=== PATIENT | male | born 1970 | race Caucasian/White ===

== ENCOUNTER 2020-03-27 14:51 | Outpatient (REF) | payer MEDICAID, SELFPAY | END 2020-03-27 14:52 | disposition home or self-care (01) | LOC: HO.LAB 14:51 | PROVIDERS: PCP Internal Medicine Geriatric Medicine; Visit Provider Internal Medicine | DX: Z20.828 Contact with and (suspected) exposure to other viral communicable diseases (principal) | CPT/HCPCS: C9803; U0003 ==

== ENCOUNTER → 2020-06-09 13:36 | Outpatient (BNVA) | payer MEDICAID, SELFPAY | PROVIDERS: Visit Provider Internal Medicine ==

== ENCOUNTER 2020-10-04 10:14 | Emergency (ER) | payer MEDICAID, SELFPAY ==
--- NOTE | ~2020-10-04 | XR_ITS ---
EXAMINATION: XR SHOULDER, LEFT CLINICAL INFORMATION: Left shoulder pain COMPARISON: January 24, 2017 TECHNIQUE: Three views of the left shoulder. FINDINGS: There is no evidence of acute fracture or dislocation. No calcific tendinitis. Glenohumeral joint unremarkable. No widening of the acromioclavicular joint is seen. No significant degenerative change of the acromioclavicular joint is noted. XR/XR shoulder LT min 2V IMPRESSION: No significant bony abnormality of the left shoulder identified.
--- NOTE | ~2020-10-04 | XR_ITS ---
EXAMINATION: XR CERVICAL SPINE CLINICAL INFORMATION: Neck pain. COMPARISON: None TECHNIQUE: 4 views of the cervical spine were obtained. FINDINGS: There is straightening of the normal cervical lordosis with normal spinal alignment. Mild to moderate degenerative disc disease is seen from C5-6 to C7-T1 with disc space narrowing and marginal osteophyte formation. There is normal spinal alignment. The vertebral bodies are intact. There is no acute fracture. The odontoid process is intact. The prevertebral soft tissues are unremarkable. XR/XR cervical spine 3V IMPRESSION: 1. Straightening of the normal cervical lordosis may be secondary to positioning and/or muscle spasm. 2. Mild degenerative disc disease in the inferior cervical spine as detailed above.
--- NOTE | ~2020-10-04 | US_ITS ---
EXAMINATION: US VENOUS WITH DOPPLER UPPER EXTREMITY, LEFT CLINICAL INFORMATION: Left shoulder pain. Left arm pain. Clinical concern for deep venous thrombosis COMPARISON: None TECHNIQUE: Ultrasound of the upper extremity is performed using compression sonography and color and pulse Doppler flow with assessment of augmentation of flow. There is also imaging and Doppler assessment of the jugular and subclavian veins. Spectral analysis with color-flow imaging is performed. FINDINGS: Respiratory variation, normal compression, and augmented flow are noted throughout the upper extremity including the axillary, and brachial veins. There is normal flow in the internal jugular and subclavian veins. There is no visible deep or superficial thrombophlebitis. If the patient's symptoms progress, a followup ultrasound in 5 -7 days might be of value to exclude proximal propagation from a nonvisualized distal arm vein. US/US venous duplex UE LT IMPRESSION: No DVT demonstrated in the left upper extremity
--- NOTE | 2020-10-04 11:35 | ECG_ITS ---
Test Reason : CHEST PAIN Blood Pressure : / mmHG Vent. Rate : 075 BPM Atrial Rate : 075 BPM P-R Int : 158 ms QRS Dur : 082 ms QT Int : 384 ms P-R-T Axes : 043 038 033 degrees QTc Int : 428 ms Normal sinus rhythm Normal ECG When compared with ECG of 02-APR-2019 18:02, No significant change was found Referred By: Nicolas Briceño Electronically Signed By:TRAM PHILLIPS
[2020-10-04 11:36] VITALS: BP 124/84; PULSE 84; RESP 16; TEMP 37.2; O2SAT 97; BMI 30.7
--- NOTE | 2020-10-04 11:40 | ED_ITS ---
HPI - General Adult General Chief complaint: Extremity Injury, Upper Stated complaint: shoulder pain Time Seen by Provider: 10/04/20 11:32 Source: patient Mode of arrival: ambulatory Limitations: no limitations History of Present Illness HPI narrative: Patient presents to ED for left shoulder pain for 2 days. Patie nt states left shoulder pain is worse on movement. Patient also states left shoulder pain radiating to lateral side of neck. Patient denies any shoulder pain radiating down to her hand or chest. Patient states no chest pain or shortness of breath. Patient denies any recent trauma, fever or chills. Denies any swelling of left upper extremity. Related Data Previous Rx's Medication Instructions Recorded cyclobenzaprine 10 mg PO TID PRN #18 tab 10/04/20 naproxen 500 mg PO BID PRN #20 tab 10/04/20 Allergies Allergy/AdvReac Type Severity Reaction Status Date / Time shellfish derived Allergy Severe ITCHY Unverified 01/30/20 17:35 [SHELLFISH DERIVED] THROAT/SWELLING seafood Allergy Unknown Uncoded 03/18/19 00:00 Review of Systems Review of Systems: Yes all other systems are reviewed and are negative Constitutional: Constitutional: Reports as per HPI and Reports no additional constitutional complaints Eyes: Eyes: Reports as per HPI and Reports no additional eye complaints ENT: Reports system reviewed and no additional complaints, except as documented and Reports as per HPI Cardiovascular: Cardiovascular: Reports as per HPI and Reports no additional cardiovascular complaints Respiratory: Respiratory: Reports as per HPI and Reports no additional respiratory complaints Gastrointestinal: Gastrointestinal: Reports as per HPI and Reports no additional gastrointestinal complaints Genitourinary: Genitourinary: Reports no additional male genitourinary complaints and Reports as per HPI Musculoskeletal: Musculoskeletal: Reports no additional musculoskeletal complaints, Reports as per HPI and Reports arthralgias (Left shoulder pain) Neurologic: Reports system reviewed and no additional complaints, except as documented and Reports as per HPI Psychiatric: Psychiatric: Reports no additional psychiatric complaints and Reports as per HPI [facility] Past Medical History Medical History (Updated 10/04/20 @ 16:08 by SINCERE Kraft) Hepatitis B Surgical History (Updated 10/04/20 @ 11:43 by Kenyatta Schultz) History of shoulder surgery Social History Social History Advance Directives: Yes Advance Directives Information Provided: Yes Advance Directives on File: No Physical Exam Vital Signs: Vital Signs: Last Vital Signs Temp 98.0 F 10/04/20 13:39 Pulse 70 10/04/20 13:39 Resp 16 10/04/20 13:39 BP 116/75 10/04/20 13:39 Pulse Ox 97 10/04/20 13:39 Body Mass Index 30.7 Const: General: cooperative, healthy appearing, comfortable, no acute distress, well developed, alert, awake and Physically active Orientation/consciousness: patient oriented x3 HENMT: Head: Yes normal to inspection, Yes No palpable skull fracture present, Yes normocephalic and Yes atraumatic Eyes: General: appearance normal, both eyes and all related structures Neck: Neck: Yes normal visual inspection, Yes full ROM, Yes no lymphadenopathy, Yes no meningeal signs, Yes trachea midline, Yes supple and No tender Chest: Chest palpation & inspection: normal inspection of the chest and normal palpation of entire chest wall Resp: Effort & Inspection: normal respiratory effort and able to speak in complete sentences Auscultation: clear to auscultation bilaterally Cardio: Jugular venous distension: no JVD Heart sounds: S1 normal heart sound present and S2 normal heart sound present GI: Inspection: Yes normal to inspection and No abdominal wall ecchymosis Palpation (GI): Soft to palpation, not firm, nontender, no guarding and not rigid : General: No CVA tenderness Back/Spine/Pelvis: Back: no CVA tenderness, No CVA tenderness and No back tenderness Skin: General skin exam: no rashes or lesions noted and elasticity normal Neuro: General: patient oriented x3, no meningeal signs and CN's II-XI intact bilaterally Cranial nerves: Yes CN's II-XII intact bilaterally Extrem: Other: Left lower extremity; POSITIVE FOR PINPOINT TENDERNESS AT ACROMION JOINT/JUNCTION. PAIN OF RANGE OF MOTION OF THE UPPER EXTREMITY. NEGATIVE FOR SWELLING, REDNESS, PAIN OR EDEMA, COOLNESS, HARDNESS, OR BLUISH/BLACK FINGERS. MOTOR/NEURO/VASCULAR EXAM IS INTACT. General: Yes normal to inspection and Yes full ROM Psych: Appearance: grossly normal, well kempt and not disheveled Course Course Course Narrative: SHOULDER PAIN MOST LIKELY DUE TO ARTHRITIC PAIN. DUE TO HISTORY OF DIABETES PATIENT EKG 1 TROPONIN TO MAKE SURE SHE DID HAVE AN MD Reevaluation(s) Reevaluation #1: EKg negative STEMI. Troponin negative after having shoulder pain for 2 days. Labs are baseline. The x-ray negative for any arthritis or fracture. Cervical Spine xray shows arthritic changes. Patient still have tenderness on palpation of left shoulder was sent for ultrasound to rule out blood clot. Reevaluation #2: Left upper extremity ultrasound negative for DVT. Diagnosis is shoulder sprain. Shoulder pain improved after receiving Toradol. Medical Decision Making MDM Narrative Medical decision making narrative: Shoulder sprain, cervical arthritis Lab Data Result diagrams: 10/04/20 12:40 10/04/20 12:35 Labs: Lab Results 10/04/20 10/04/20 10/04/20 Range/Units 12:35 12:40 12:40 WBC 8.5 (4.8-10.8) X10*3/uL RBC 4.78 (4.60-5.80) X10*6/uL Hgb 14.0 (14.0-18.0) g/dl Hct 42.1 (42-52) % MCV 88.1 (80-98) fL MCH 29.3 (27.0-33.0) pg MCHC 33.3 (31.0-36.0) g/dl RDW 13.2 (11.0-16.0) % Plt Count 226 (160-400) X10*3/uL MPV 9.9 (9.4-12.4) fL Immature Gran % (Auto) 0.2 (0.0-0.4) % Neut % (Auto) 58.6 (45-73) % Lymph % (Auto) 28.4 (20-40) % [place] % (Auto) 9.1 (2-11) % Eos % (Auto) 3.3 (0-4) % Baso % (Auto) 0.4 (0-2) % Lymph # (Auto) 2.4 (1.2-4.9) X10*3/uL [place] # (Auto) 0.8 (0.1-1.2) X10*3/uL Eos # (Auto) 0.3 (0.0-0.4) X10*3/uL Baso # (Auto) 0.0 (0.0-0.2) X10*3/uL Abs Immat Gran (auto) 0.02 (0.00-0.03) X10*3/uL Absolute Neuts (auto) 5.0 (2.0-8.3) X10*3/uL Absolute Nucleated RBC 0.000 (0.0-0.012) X10*3/uL Nucleated RBC % (auto) 0.0 (0.0-0.2) /100WBC PT 12.1 (10.8-13.0) SEC INR 1.0 (0.9-1.1) APTT 33.3 (24.1-38.0) SEC Sodium 137 (135-145) mmol/L Potassium 4.2 (3.3-5.1) mmol/L Chloride 103 (96-108) mmol/L Carbon Dioxide 27 (22-29) mmol/L Anion Gap 11 L (12-20) BUN 13 (9-16) mg/dL Creatinine 0.90 (0.5-1.4) mg/dL Estim Creat Clear Calc 101.1 Estimated GFR > 60 Random Glucose 262 H (60-115) mg/dL Calcium 9.0 (8.4-10.2) mg/dL Total Bilirubin 0.3 (0.0-1.0) mg/dL AST 18 (5-37) U/L ALT 27 (0-40) U/L Alkaline Phosphatase 69 (39-117) U/L Troponin I High Sens (<3.5-35.0) ng/L Total Protein 6.8 (6.5-8.0) g/dL Albumin 4.0 (3.5-5.0) g/dL 10/04/20 Range/Units 12:40 WBC (4.8-10.8) X10*3/uL RBC (4.60-5.80) X10*6/uL Hgb (14.0-18.0) g/dl Hct (42-52) % MCV (80-98) fL MCH (27.0-33.0) pg MCHC (31.0-36.0) g/dl RDW (11.0-16.0) % Plt Count (160-400) X10*3/uL MPV (9.4-12.4) fL Immature Gran % (Auto) (0.0-0.4) % Neut % (Auto) (45-73) % Lymph % (Auto) (20-40) % [place] % (Auto) (2-11) % Eos % (Auto) (0-4) % Baso % (Auto) (0-2) % Lymph # (Auto) (1.2-4.9) X10*3/uL [place] # (Auto) (0.1-1.2) X10*3/uL Eos # (Auto) (0.0-0.4) X10*3/uL Baso # (Auto) (0.0-0.2) X10*3/uL Abs Immat Gran (auto) (0.00-0.03) X10*3/uL Absolute Neuts (auto) (2.0-8.3) X10*3/uL Absolute Nucleated RBC (0.0-0.012) X10*3/uL Nucleated RBC % (auto) (0.0-0.2) /100WBC PT (10.8-13.0) SEC INR (0.9-1.1) APTT (24.1-38.0) SEC Sodium (135-145) mmol/L Potassium (3.3-5.1) mmol/L Chloride (96-108) mmol/L Carbon Dioxide (22-29) mmol/L Anion Gap (12-20) BUN (9-16) mg/dL Creatinine (0.5-1.4) mg/dL Estim Creat Clear Calc Estimated GFR Random Glucose (60-115) mg/dL Calcium (8.4-10.2) mg/dL Total Bilirubin (0.0-1.0) mg/dL AST (5-37) U/L ALT (0-40) U/L Alkaline Phosphatase (39-117) U/L Troponin I High Sens < 3.5 (<3.5-35.0) ng/L Total Protein (6.5-8.0) g/dL Albumin (3.5-5.0) g/dL ECG Data Interpretation: Normal sinus rhythm. Normal EKG. Nuclear rate 87. Parents of 148. QRS duration 88. QTC 481. negative stEMI Discharge Plan Discharge Clinical Impression: Shoulder sprain Patient Disposition: Home, Self-Care Instructions: Shoulder Sprain (ED), Cervical Radiculopathy (ED) Additional Instructions: Regrese al servicio de urgencias de inmediato si tiene dolor de pecho, dificultad para respirar, hinchaz?n de la extremidad superior, enrojecimiento, calor, decoloraci?n azulada de las yemas de los dedos, par?lisis de las extremidades o cualquier otro s?ntoma que le preocupe. Prescriptions: New naproxen 500 mg tablet 500 mg PO BID PRN (Reason: pain) Qty: 20 RF: 0 cyclobenzaprine 10 mg tablet 10 mg PO TID PRN (Reason: pain) Qty: 18 RF: 0 Referrals: Eloy Meek MD [Primary Care Provider] - 2 days (Shoulder sprain. X-ray negative for fracture. EKG normal. Troponin negative. Left upper extremity ultrasound negative for DVT) Discharge Date/Time: 10/04/20 16:50 Print Language: Citizen Of [place]
[2020-10-04 12:48] LABS: MANUAL DIFF FLAG NO
[2020-10-04 12:52] LABS: Basophils Percent Auto 0.4 % (0-2); Eosinophils Absolute Auto 0.3 X10*3/uL (0.0-0.4); Eosinophils Percent Auto 3.3 % (0-4); Hematocrit 42.1 % (42-52); Imm Gran Abs Auto 0.02 X10*3/uL (0.00-0.03); Imm Gran Pct Auto 0.2 % (0.0-0.4); Lymphocytes Absolute Auto 2.4 X10*3/uL (1.2-4.9); Lymphocytes Percent Auto 28.4 % (20-40); Mean Corpuscular HGB Conc 33.3 g/dl (31.0-36.0); Mean Corpuscular Hemoglobin 29.3 pg (27.0-33.0); Mean Corpuscular Volume 88.1 fL (80-98); Mean Platelet Volume 9.9 fL (9.4-12.4); Monocytes Absolute Auto 0.8 X10*3/uL (0.1-1.2); Monocytes Percent Auto 9.1 % (2-11); Neutrophils Percent Auto 58.6 % (45-73); Platelet Count 226 X10*3/uL (160-400); Red Blood Count 4.78 X10*6/uL (4.60-5.80); Red Cell Distribution Width 13.2 % (11.0-16.0); White Blood Count 8.5 X10*3/uL (4.8-10.8)
[2020-10-04 13:00] LABS: Prothrombin Time 12.1 SEC (10.8-13.0)
[2020-10-04 13:02] LABS: Partial Thromboplastin Time 33.3 SEC (24.1-38.0)
[2020-10-04 13:12] LABS: Alanine Aminotransferase 27 U/L (0-40); Alkaline Phosphatase 69 U/L (39-117); Anion Gap 11 (12-20); Aspartate Amino Transferase 18 U/L (5-37); Bilirubin Total 0.3 mg/dL (0.0-1.0); Blood Urea Nitrogen 13 mg/dL (9-16); Carbon Dioxide 27 mmol/L (22-29); Chloride 103 mmol/L (96-108); Creatinine Clr Calc Pharmacy 101.1; Estimated Glomerular Filt Rate > 60; Glucose Random 262 mg/dL (60-115); Potassium 4.2 mmol/L (3.3-5.1); Sodium 137 mmol/L (135-145); Total Protein 6.8 g/dL (6.5-8.0)
[2020-10-04 13:17] LABS: Troponin-I High Sensitivity < 3.5 ng/L (<3.5-35.0)
[2020-10-04] MEDS: Ketorolac Tromethamine 30 MG/ML VIAL IVPUSH (13:36)
[2020-10-04 13:39] VITALS: BP 116/75; PULSE 70; RESP 16; TEMP 36.7; O2SAT 97
== END 2020-10-04 16:50 | disposition home or self-care (01) ==
PROVIDERS: Physician Assistant; Emergency Provider Emergency Medicine; PCP Internal Medicine Geriatric Medicine
DX: M25.512 Pain in left shoulder (principal); R60.0 Localized edema; Z79.899 Other long term (current) drug therapy
CPT/HCPCS: 36415; 72040; 73030; 80053; 84484; 85025; 85610; 85730; 93005; 93971; 96372; 99284; J1885

== ENCOUNTER 2021-08-24 07:24 | Emergency (ER) | payer MEDICAID, SELFPAY ==
[2021-08-24 07:35] VITALS: BP 145/96; PULSE 80; RESP 16; TEMP 36.7; O2SAT 99; BMI 29.9
--- NOTE | 2021-08-24 07:55 | ED.WOUNDLAC ---
HPI - Wound/Laceration General Chief Complaint: Wound/Laceration Stated Complaint: finger lac Time Seen by Provider: 08/24/21 07:49 Source: patient Mode of arrival: ambulatory Limitations: no limitations History of Present Illness HPI narrative: 50 y/o male presenting with right index finger with a razor blade while cutting fruit at work earlier today. He reports cutting the tip of the finger off but on a slant. It did not involve the nail. He reports pain and bleeding on arrival. He rinsed it out and tried to apply pressure but the bleeding wouldnt stop. He is unsure when his last tetanus shot was. He is able to fully bend, extend the finger and denies numbness, weakness or tingling. Onset (ago): minute(s) Extremity Location: right: hand (index finger) Place: work Patient tetanus UTD: No Context: accidental Associated symptoms: none Treatments prior to arrival: bandage Related Data Previous Rx's Medication Instructions Recorded cyclobenzaprine 10 mg tablet 10 mg PO TID PRN #18 tab 10/04/20 naproxen 500 mg tablet 500 mg PO BID PRN #20 tab 10/04/20 Allergies Allergy/AdvReac Type Severity Reaction Status Date / Time shellfish derived Allergy Severe ITCHY Unverified 01/30/20 17:35 [SHELLFISH DERIVED] THROAT/SWELLING seafood Allergy Unknown Uncoded 03/18/19 00:00 Review of Systems Review of Systems: Constitutional: No Fever, No Chills Cardiovascular: No Chest Pain, No SOB Gastrointestinal: No Nausea, No Vomiting Musculoskeletal: No joint pain, No Myalgias Skin: + Skin Lesions, No rash Neuro: No Weakness, No Numbness Heme/Lymph: No Bruising PMFSH Past Medical History Medical History (Updated 08/24/21 @ 08:24 by SINCERE Boyd) Hepatitis B Surgical History History of shoulder surgery Social History Social History Advance Directives: No Advance Directives Information Provided: Yes Physical Exam Vital Signs: Vital Signs: Last Vital Signs Temp 98.1 F 08/24/21 07:35 Pulse 80 08/24/21 07:35 Resp 16 08/24/21 07:35 BP 145/96 H 08/24/21 07:35 Pulse Ox 99 04/12/22 07:35 BMI result Body Mass Index 29.9 Appearance: Alert. Oriented X3. No acute distress. HEENT: normal inspection CVS: Normal heart rate and rhythm. Pulses normal. Respiratory: No respiratory distress. Skin: Skin warm and dry. Normal skin color. Normal skin turgor. No rashes. Extremities: right index finger with an avulsion lateral to the nail, approx 1 cm with active bleeding, clean cut without flap. cap refill <3 sec, normal ROM of the digit. Neuro: Oriented X 3. No motor deficit. No sensory deficit. Course Course Course Narrative: 50 y/o male presenting with right index finger avulsion. Surgicel applied to stop the bleeding with good effect. DSD applied. Wound care discussed and Tdap given. Stable for d/c home. Work note provided and encouraged to f/u with PCP. Critical Care Time Critical Care Time Critical Care Time: No Discharge Plan Discharge Clinical Impression: Avulsion of skin Patient Disposition: Home, Self-Care Instructions: Skin Avulsion (ED) Additional Instructions: Keep the shiney gauze on your finger for the next 2 days. Keep covered and dry, do not get wet for the next 2 days. After 2 days you can use water and rinse it off. If bleeding occurs, hold pressure for 15 minutes. Keep elevated and apply ice to the area to help with pressure, throbbing and pain. Take Motrin and/or Tylenol for pain. If you develop new or worsening symptoms call 911 or come back to the ER for further evaluation. Prescriptions: No Action naproxen 500 mg tablet 500 mg PO BID PRN (Reason: pain) Qty: 20 0RF cyclobenzaprine 10 mg tablet 10 mg PO TID PRN (Reason: pain) Qty: 18 0RF Rx Instructions: El efecto secundario es la somnolencia. No lo tome en el trabajo o mientras conduce Referrals: Name,MD Eloy [Primary Care Provider] - Stand Alone Forms: Work/School Release
[2021-08-24] MEDS: Diphth,Pertus(ACell),Tet Adult 0.5 ML SYRINGE IM (08:35)
== END 2021-08-24 09:10 | disposition home or self-care (01) ==
PROVIDERS: Emergency Provider Emergency Medicine; PCP Internal Medicine Geriatric Medicine
DX: S61.210A Laceration without foreign body of right index finger without damage to nail, initial encounter (principal); W27.8XXA Contact with other nonpowered hand tool, initial encounter; Y93.G1 Activity, food preparation and clean up; Y92.511 Restaurant or cafe as the place of occurrence of the external cause; Y99.0 Civilian activity done for income or pay
CPT/HCPCS: 12001; 90471; 90715; 99283; 99284

== ENCOUNTER 2021-11-18 10:51 | Outpatient (REF) | payer MEDICAID, SELFPAY ==
--- NOTE | ~2021-11-18 | XR_ITS ---
EXAMINATION: BILATERAL SHOULDER. CLINICAL INFORMATION: Pain. COMPARISON: None TECHNIQUE: 4 views each shoulder FINDINGS: Left shoulder: There is no visible acute fracture, dislocation or subluxation seen. No bony erosive changes. No acute fracture or dislocation. The soft tissues are normal. Right shoulder: There are 2 daya along the right humeral head from previous intervention. There is maintained normal glenohumeral and AC joint space. No visible acute fracture, dislocation or subluxation seen. No loose bodies. The soft tissues are normal. XR/XR shoulder LT min 2V IMPRESSION: Unremarkable bilateral shoulder exam.
--- NOTE | ~2021-11-18 | XR_ITS ---
EXAMINATION: BILATERAL SHOULDER. CLINICAL INFORMATION: Pain. COMPARISON: None TECHNIQUE: 4 views each shoulder FINDINGS: Left shoulder: There is no visible acute fracture, dislocation or subluxation seen. No bony erosive changes. No acute fracture or dislocation. The soft tissues are normal. Right shoulder: There are 2 daya along the right humeral head from previous intervention. There is maintained normal glenohumeral and AC joint space. No visible acute fracture, dislocation or subluxation seen. No loose bodies. The soft tissues are normal. XR/XR shoulder RT min 2V IMPRESSION: Unremarkable bilateral shoulder exam.
== END 2021-11-18 10:52 | disposition home or self-care (01) ==
LOC: HO.XRAY 10:51
PROVIDERS: Absent Provider Internal Medicine Geriatric Medicine; PCP Internal Medicine Geriatric Medicine; Visit Provider Registered Nurse Community Health
DX: M25.511 Pain in right shoulder (principal); M25.512 Pain in left shoulder
CPT/HCPCS: 73030

== ENCOUNTER 2022-07-13 11:36 | Outpatient (REF) | payer MEDICAID, SELFPAY ==
--- NOTE | ~2022-07-13 | XR_ITS ---
EXAMINATION: XR KNEE, LEFT XR SHOULDER, RIGHT CLINICAL INFORMATION: Left knee pain and right shoulder pain. COMPARISON: Right shoulder 11/18/2021. TECHNIQUE: Left knee 4 views. Right shoulder 4 views. FINDINGS: LEFT KNEE: The tricompartment joint space is maintained normal. No bony erosive changes. No loose bodies, acute fracture or dislocation. No abnormal joint effusion. There is anterior superior patellar enthesophyte. The soft tissues are normal. RIGHT SHOULDER: There is no visible acute fracture, dislocation or subluxation. The glenohumeral joint and AC joint space is maintained normal. No visible acute fracture, dislocation or lytic process seen. There are 2 daya along the right proximal humerus. They are unchanged from 11/18/2021 exam. The soft tissues are normal. XR/XR knee LT 4V IMPRESSION: 1. Unremarkable left knee exam. 2. Unremarkable right shoulder exam. There are 2 daya along the proximal right humerus unchanged to last right shoulder exam. There is no visible acute fracture or dislocation.
--- NOTE | ~2022-07-13 | XR_ITS ---
EXAMINATION: XR KNEE, LEFT XR SHOULDER, RIGHT CLINICAL INFORMATION: Left knee pain and right shoulder pain. COMPARISON: Right shoulder 11/18/2021. TECHNIQUE: Left knee 4 views. Right shoulder 4 views. FINDINGS: LEFT KNEE: The tricompartment joint space is maintained normal. No bony erosive changes. No loose bodies, acute fracture or dislocation. No abnormal joint effusion. There is anterior superior patellar enthesophyte. The soft tissues are normal. RIGHT SHOULDER: There is no visible acute fracture, dislocation or subluxation. The glenohumeral joint and AC joint space is maintained normal. No visible acute fracture, dislocation or lytic process seen. There are 2 daya along the right proximal humerus. They are unchanged from 11/18/2021 exam. The soft tissues are normal. XR/XR shoulder RT min 2V IMPRESSION: 1. Unremarkable left knee exam. 2. Unremarkable right shoulder exam. There are 2 daya along the proximal right humerus unchanged to last right shoulder exam. There is no visible acute fracture or dislocation.
--- NOTE | ~2022-07-13 | XR_ITS ---
EXAMINATION: XR KNEE, RIGHT CLINICAL INFORMATION: Pain. COMPARISON: None TECHNIQUE: AP, lateral, tunnel, and sunrise views of the right knee. FINDINGS: Bony alignment and mineralization are normal. The lateral, medial and patellofemoral joint space compartments are well-maintained. There is a tiny peripheral osteophyte at the upper articular surface of the patella. A small enthesophyte is seen at the upper pole of the patella towards the quadriceps tendon insertion. No fracture or dislocation is seen. There is a small right knee joint effusion. No foreign body is seen. XR/XR knee RT 4V IMPRESSION: 1. No right knee fracture or dislocation is seen. 2. There is a small right knee joint effusion. 3. There is minimal osteoarthritic change of the right patellofemoral compartment.
== END 2022-07-13 11:37 | disposition home or self-care (01) ==
LOC: HO.XRAY 11:36
PROVIDERS: PCP Internal Medicine Geriatric Medicine; Visit Provider Internal Medicine Geriatric Medicine
DX: M25.561 Pain in right knee (principal); M25.562 Pain in left knee; M25.511 Pain in right shoulder; G89.29 Other chronic pain
CPT/HCPCS: 73030; 73564

== ENCOUNTER → 2022-08-18 08:42 | Outpatient (BNVA) | payer MEDICAID, SELFPAY | PROVIDERS: PCP Internal Medicine Geriatric Medicine; Visit Provider Physician Assistant | DX: M75.81 Other shoulder lesions, right shoulder (principal); M75.21 Bicipital tendinitis, right shoulder | CPT/HCPCS: 99202 ==

== ENCOUNTER 2022-11-08 11:00 | Outpatient (RCR) | payer MEDICAID, SELFPAY ==
--- NOTE | 2022-10-11 14:43 | MHC.PT.EP ---
[facility] [place] Office [place] Office [place] Office [address] [phone] F: [phone] F: [phone] F: [phone] F: [phone] Physical Therapy Plan of Care Date of Evaluation: Date of Surgery: Diagnosis: RIGHT SHOULDER PAIN (KP) Assessment: KAITLIN IS A PLEASANT 51 YO GENTLEMAN WHO PRESENTS WITH EXACCERBATION OF SHOULDER PAIN. HE REPORTS HAVING AN INJURY SEVERAL YEARS AGO WHICH EVENTUALLY REQUIRED A ROTATOR CUFF REPAIR. HE REPORTS PAIN OF SEVERAL MONTHS DURATION, NO NEW TOYA. PAIN LEVELS VARY AND INCREASE WITH ACTIVITY. UPON EXAM, IMPAIRMENTS INCLUDE DECREASED SHOULDER ROM, DECREASED STRENGTH, ALTERED POSTURE, DECREASED SOFT TISSUE MOBILITY AND INCREASED PAIN. FUNCTIONAL LIMITATIONS INCLUDE DECREASED ABILITY TO PERFORM REACHING, LIFTING, PUSHING AND PULLING. HE REPORTS DECREASED TOLERANCE TO SLEEPING AND TO DRIVING. Frequency and Duration: The patient will be seen 2 X WEEK FOR 4 WEEKS Short Term Goals: INITIATE HEP AND PROMOTE SELF MANAGEMENT OF SYMPTOMS Detention Goals: FULL SHOULDER ROM WITH PAIN NO GREATER THAN 2/10 FULL SHOULDER STRENGTH, EQUAL NIKITA TO PLACE OBJECT, AT MINIMUM 5#, ON SHOULDER HEIGHT SHELF INDEPENDENT HEP Treatment Plan: Modalities to reduce pain, spasms and effusion. Manual therapy to restore motion and function. Therapeutic exercise to improve strength and flexibility. Neuromuscular re-education for posture and balance. Therapeutic activities to return to functional activities of daily living. Electronically signed by: NISHANT CARDOZA PT DPT Please sign and return to therapist. Thank you for your referral.
--- NOTE | 2022-11-28 08:46 | MHC.PT.DC ---
[facility] [place] Office [place] Office [place] Office [address] Ariane Cano [address] [phone] F: [phone] F: [phone] F: [phone] F: [phone] Physical Therapy Discharge Report Diagnosis: RIGHT SHOULDER PAIN (KP) Date of Surgery: Date of Evaluation: 10/11/22 Date of Discharge: 11/16/22 Treatments to Date: 4 Cancellations to Date: 1 No Shows to Date: 3 Discharge Status: Visit Non-compliance Discharge Summary: Pt NO SHOWED/CANCELLED X 4. DCed FOR NON-COMPLIANCE Electronically signed by: NISHANT CARDOZA PT DPT Please sign and return to therapist. Thank you for your referral.
== END 2022-11-28 08:46 | disposition home or self-care (01) ==
LOC: HO.PT 11:00
PROVIDERS: PCP Internal Medicine Geriatric Medicine; Visit Provider Physician Assistant
DX: M75.81 Other shoulder lesions, right shoulder (principal); M75.21 Bicipital tendinitis, right shoulder
CPT/HCPCS: 97033; 97110; 97161

== ENCOUNTER 2022-12-25 22:57 | Emergency (ER) | payer MEDICAID, SELFPAY ==
--- NOTE | ~2022-12-25 | XR_ITS ---
EXAMINATION: XR CHEST CLINICAL INFORMATION: Shortness of breath. COMPARISON: 04/02/2019. TECHNIQUE: 2 views of the chest were obtained. FINDINGS: The cardiomediastinal silhouette is normal. There is no focal lung consolidation or pleural effusion. The bony structures and soft tissues are unremarkable. XR/XR chest 2V IMPRESSION: No active cardiopulmonary disease.
[2022-12-25 23:50] VITALS: BP 136/92; PULSE 71; RESP 18; TEMP 36.8; O2SAT 98; BMI 35.7
[2022-12-26 00:39] LABS: Influenza A PCR NEGATIVE (Negative); Influenza B PCR NEGATIVE (Negative); Resp Syncy Virus RNA Qual PCR NEGATIVE (Negative); SARS COV2 PCR INHOUSE NEGATIVE (Negative)
[2022-12-26 06:31] VITALS: BP 142/86; PULSE 87; RESP 18; O2SAT 100
[2022-12-26 06:32] VITALS: O2SAT 100
[2022-12-26 06:34] VITALS: TEMP 36.5
--- NOTE | 2022-12-26 07:11 | ED_ITS ---
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 Patient reports that he developed the symptoms 2 weeks ago and feels as though his symptoms have not improved despite taking Tylenol and ibuprofen at home. Patient endorses subjective fevers, chills. Initially his cough is productive with yellow colored sputum, now is a dry cough. He denies any chest pain, shortness of breath, abdominal pain, nausea, vomiting, diarrhea, or urinary symptoms. Denies any other complaints or concerns at this time. MD complaint: Cough Onset (ago): week(s) Radiation: non-radiation Relieving factors: none Exacerbating factors: none Associated symptoms: denies other symptoms Treatments prior to arrival: none Related Data Home Medications Medication Instructions Recorded Confirmed amlodipine 2.5 mg tablet 5 mg PO QAM 08/18/22 08/18/22 atorvastatin 20 mg tablet 20 mg PO DAILY 08/18/22 08/18/22 duloxetine 60 mg capsule,delayed 60 mg PO DAILY 08/18/22 08/18/22 release empagliflozin 10 mg tablet 10 mg PO QAM 08/18/22 08/18/22 (Jardiance) glipizide 5 mg tablet 5 mg PO TID 08/18/22 08/18/22 lisinopril 10 mg tablet 10 mg PO DAILY 08/18/22 08/18/22 metformin 1,000 mg tablet 1,000 mg PO 08/18/22 08/18/22 mirtazapine 15 mg tablet 15 mg PO BEDTIME 08/18/22 08/18/22 omeprazole 20 mg capsule,delayed 20 mg PO DAILY 08/18/22 08/18/22 release Previous Rx's Medication Instructions Recorded cyclobenzaprine 10 mg tablet 10 mg PO TID PRN pain #18 tabs 10/04/20 naproxen 500 mg tablet 500 mg PO BID PRN pain #20 tabs 10/04/20 azithromycin 250 mg tablet See Rx Instructions PO .COMPLEX #6 12/26/22 tabs benzonatate 200 mg capsule 200 mg PO TID PRN cough #14 caps 12/26/22 Allergies Allergy/AdvReac Type Severity Reaction Status Date / Time shellfish derived Allergy Severe ITCHY Unverified 08/18/22 08:49 [SHELLFISH DERIVED] THROAT/SWELLING seafood Allergy Unknown Unknown Uncoded 08/18/22 08:49 Review of Systems Review of Systems: Yes all other systems are reviewed and are negative Constitutional: Constitutional: Reports as per [facility] Past Medical History Medical History Anxiety and depression Diabetes Hepatitis B High cholesterol Hypertension Surgical History History of colon surgery History of shoulder surgery Social History Social History Alcohol intake: never Tobacco use type: Smokeless Tobacco Smoked in Last 30 Days: No Use of substances other than those prescribed or required for medical reasons: No Advance Directives: No Advance Directives Information Provided: No Current occupational status: employed Current occupation: [employer], left handed Physical Exam ED Vital Signs: Vital Signs - 24 hr 12/25/22 23:50 12/26/22 06:31 12/26/22 06:32 Temperature 98.2 F Pulse Rate 71 87 Respiratory Rate 18 18 Blood Pressure 136/92 H 142/86 H Pulse Oximetry 98 100 100 Oxygen Delivery Method Room Air Room Air Room Air 12/26/22 06:34 12/26/22 07:31 Temperature 97.7 F 97.7 F Pulse Rate 70 Respiratory Rate 16 Blood Pressure 131/90 H Pulse Oximetry 98 Oxygen Delivery Method Room Air BMI result Body Mass Index 35.7 Const General: cooperative, comfortable and no acute distress Orientation/consciousness: patient oriented x3 Limitations: no limitations HENMT Other: Oropharynx is mildly erythematous, no tonsillar hypertrophy or exudate. Uvula is midline. Pharynx is widely patent Head: Yes normal to inspection, Yes normocephalic and Yes atraumatic Ears: hearing grossly normal bilaterally General nose exam: Normal external nose present Face and sinus: Yes normal facial exam Mouth: Normal oral and palatal mucosa present, oropharynx normal and moist mucous membranes Throat: Yes posterior oropharynx normal Eyes General: appearance normal, both eyes and all related structures Eyelids: Yes eyelids normal Conjunctivae: conjunctivae normal Sclerae: sclerae normal Pupils: Equal, round and reactive pupils present EOM: EOMs intact bilaterally Neck Neck: Yes normal visual inspection, Yes full ROM and Yes no lymphadenopathy Lymphatic: no lymphadenopathy noted Chest Chest palpation & inspection: normal inspection of the chest Resp Effort & Inspection: normal respiratory effort and able to speak in complete sentences Auscultation: clear to auscultation bilaterally, no crackles, no rales, no rhonchi and no wheezes Cardio Rate: regular rate Rhythm: regular rhythm Heart sounds: S1 normal heart sound present and S2 normal heart sound present GI Inspection: Yes normal to inspection Skin General skin exam: no rashes or lesions noted Trauma: no lacerations or abrasions Wounds: no wounds Neuro General: patient oriented x3 and moves all extremities Cranial nerves: Yes Equal, round and reactive pupils present Extrem General: Yes normal to inspection Right upper extremity: normal to inspection Left upper extremity: normal to inspection Right lower extremity: normal to inspection Left lower extremity: normal to inspection Medical Decision Making Medical Decision Making [facility] Narrative: 52-year-old male, with a past medical history of diabetes, hyperlipidemia, hypertension, anxiety and depression, presenting to the emergency department for evaluation of cough, body aches, chills, dizziness, headaches. On arrival, mildly hypertensive at 136/92. On examination, lungs are clear to auscultation bilaterally, oropharynx is mildly erythematous. Differential diagnoses including pneumonia, upper respiratory infection, sinusitis, influenza. Presentation not consistent with chronic causes cough including medication side effect, CHF. Viral swabs obtained and were negative today. Chest x-ray revealing no pneumonia or consolidation. Given duration of symptoms, will treat with antibiotics and Tessalon. Patient educated to return if any new or wors ening symptoms occur. Patient understands and agrees with plan. Patient stable for discharge. Differential Diagnosis Differential Diagnoses: The differential diagnosis associated with the presentation includes Upper respiratory infection, pneumonia, COVID, flu Lab Data [facility] Lab Attestation statement: I reviewed the patient's lab results. Negative viral panel Labs: Lab Results 12/25/22 Range/Units 23:55 Influenza Type A (PCR) NEGATIVE (Negative) Influenza Type B (PCR) NEGATIVE (Negative) RSV RNA Qual (PCR) NEGATIVE (Negative) SARS-CoV-2 RNA (RT-PCR) NEGATIVE (Negative) Radiology Impression Discussion of test interpretation with radiology: I have reviewed the radiologist's reading. Radiologist Impression: EXAMINATION: XR CHEST CLINICAL INFORMATION: Shortness of breath. COMPARISON: 04/02/2019. TECHNIQUE: 2 views of the chest were obtained. FINDINGS: The cardiomediastinal silhouette is normal. There is no focal lung consolidation or pleural effusion. The bony structures and soft tissues are unremarkable. XR/XR chest 2V IMPRESSION: No active cardiopulmonary disease. Dictated By: Reynaldo Montalvo Discharge Plan Discharge Clinical Impression: Upper respiratory infection Patient Disposition: Home, Self-Care Instructions: Upper Respiratory Infection (ED) Additional Instructions: Please drink plenty of fluids and get plenty of rest. Continue taking Tylenol and ibuprofen as directed for symptomatic relief. Take prescribed antibiotic and cough medication. Finish the entire course of the antibiotic even if your feeling better. If any new or worsening symptoms occur including but not limited to the worsening cough, shortness of breath, chest pain, please return for re- evaluation. Follow-up with your primary care physician. Kizzy muchos l?quidos y descanse lo suficiente. Contin?e tomando Tylenol e ibuprofeno seg?n las indicaciones para el alivio sintom?ruddy. Clare antibi?ticos recetados y medicamentos para la tos. Termine todo el curso del antibi?ruddy incluso si se siente mejor. Si se presentan s?ntomas nuevos o que empeoran, incluidos, entre otros, empeoramiento de la tos, dificultad para respirar, dolor en el pecho, regrese para naheed nueva evaluaci?n. Seguimiento con bradshaw m?dico de atenci?n primaria. Prescriptions: New azithromycin 250 mg tablet See Rx Instructions .ROUTE .COMPLEX Qty: 6 0RF Rx Instructions: For 250 mg dose pack: take 500 mg today (day 1), then 250 mg for 4 days (days 2-5) benzonatate 200 mg capsule 200 mg PO TID PRN (Reason: cough) Qty: 14 0RF No Action naproxen 500 mg tablet 500 mg PO BID PRN (Reason: pain) Qty: 20 0RF cyclobenzaprine 10 mg tablet 10 mg PO TID PRN (Reason: pain) Qty: 18 0RF Rx Instructions: El efecto secundario es la somnolencia. No lo tome en el trabajo o mientras conduce Jardiance 10 mg tablet 10 mg PO QAM mirtazapine 15 mg tablet 15 mg PO BEDTIME amlodipine 2.5 mg tablet 5 mg PO QAM duloxetine 60 mg capsule,delayed release(DR/EC) 60 mg PO DAILY omeprazole 20 mg capsule,delayed release(DR/EC) 20 mg PO DAILY metformin 1,000 mg tablet 1,000 mg PO lisinopril 10 mg tablet 10 mg PO DAILY atorvastatin 20 mg tablet 20 mg PO DAILY glipizide 5 mg tablet 5 mg PO TID Interventions: ED Discharge Assessment Last Done: 12/26/22 07:45 Discharge Date/Time: 12/26/22 07:45 Print Language: Mexican
[2022-12-26 07:31] VITALS: BP 131/90; PULSE 70; RESP 16; TEMP 36.5; O2SAT 98
== END 2022-12-26 07:45 | disposition home or self-care (01) ==
PROVIDERS: Emergency Provider Emergency Medicine; PCP Internal Medicine Geriatric Medicine
DX: J06.9 Acute upper respiratory infection, unspecified (principal); J02.9 Acute pharyngitis, unspecified; Z20.822 Contact with and (suspected) exposure to COVID-19; Z20.828 Contact with and (suspected) exposure to other viral communicable diseases; E11.9 Type 2 diabetes mellitus without complications; I10 Essential (primary) hypertension; E78.5 Hyperlipidemia, unspecified; F17.200 Nicotine dependence, unspecified, uncomplicated
CPT/HCPCS: 0241U; 71046; 99283; 99284

== ENCOUNTER 2023-06-19 11:34 | Outpatient (REF) | payer MEDICAID, SELFPAY ==
--- NOTE | ~2023-06-19 | XR_ITS ---
EXAMINATION: XR LUMBOSACRAL SPINE CLINICAL INFORMATION: Worsening low back pain COMPARISON: None available. TECHNIQUE: Three views of the lumbosacral spine. FINDINGS: The visualized lumbar vertebrae are intact with normal alignment. Intervertebral disc spaces are normal. Sacrum and coccyx are intact with normal alignment. XR/XR lumbar spine 2-3V IMPRESSION: 1. Normal lumbosacral spine x-ray. 2. No fracture or dislocation of lumbar spine is seen.
== END 2023-06-19 11:35 | disposition home or self-care (01) ==
LOC: HO.HHCX 11:34
PROVIDERS: Visit Provider Internal Medicine Geriatric Medicine
DX: M54.50 Low back pain, unspecified (principal); G89.29 Other chronic pain
CPT/HCPCS: 72100

== ENCOUNTER 2023-06-30 09:15 | Outpatient (REF) | payer MEDICAID, SELFPAY ==
[2023-06-30 11:13] LABS: MANUAL DIFF FLAG NO
[2023-06-30 11:28] LABS: Alanine Aminotransferase 23 U/L (0-40); Albumin Level 4.2 g/dL (3.5-5.0); Alkaline Phosphatase 68 U/L (39-117); Anion Gap 11 (12-20); Aspartate Amino Transferase 16 U/L (5-37); Bilirubin Total 0.4 mg/dL (0.0-1.0); Blood Urea Nitrogen 16 mg/dL (9-16); Calcium 9.2 mg/dL (8.4-10.2); Carbon Dioxide 27 mmol/L (22-29); Chloride 104 mmol/L (96-108); Cholesterol 169 mg/dL (<200); Estimated Glomerular Filt Rate > 60; Glucose Random 172 mg/dL (60-115); HDL Cholesterol 33 mg/dL (>40); LDL Cholesterol Calculated 121 mg/dL (<100); Potassium 4.3 mmol/L (3.3-5.1); Sodium 138 mmol/L (135-145); Total Protein 7.5 g/dL (6.5-8.0); Triglycerides 75 mg/dL (<150)
[2023-06-30 11:53] LABS: Vitamin B12 653 pg/mL (200-900)
[2023-06-30 12:17] LABS: Basophils Absolute Auto 0.1 X10*3/uL (0.0-0.2); Basophils Percent Auto 0.6 % (0-2); Eosinophils Absolute Auto 0.4 X10*3/uL (0.0-0.4); Eosinophils Percent Auto 4.2 % (0-4); Hematocrit 46.3 % (42.0-52.0); Hemoglobin 15.3 g/dl (14.0-18.0); Imm Gran Abs Auto 0.03 X10*3/uL (0.00-0.03); Imm Gran Pct Auto 0.3 % (0.0-0.4); Lymphocytes Absolute Auto 2.9 X10*3/uL (1.2-4.9); Lymphocytes Percent Auto 33.8 % (20-40); Mean Corpuscular Hemoglobin 28.7 pg (27.0-33.0); Mean Corpuscular Volume 86.9 fL (80.0-98.0); Mean Platelet Volume 10.7 fL (9.4-12.4); Monocytes Absolute Auto 0.8 X10*3/uL (0.1-1.2); Neutrophils Absolute Auto 4.5 x10*3/uL (2.0-8.3); Neutrophils Percent Auto 52.1 % (45-73); Platelet Count 257 X10*3/uL (160-400); Red Blood Count 5.33 X10*6/uL (4.60-5.80); Red Cell Distribution Width 12.9 % (11.0-16.0); White Blood Count 8.6 X10*3/uL (4.8-10.8)
[2023-06-30 12:25] LABS: Microalbum/Creatinine Ratio Ur 15.9 ug/mg cr (<30)
== END 2023-06-30 09:16 | disposition home or self-care (01) ==
LOC: HO.HHCL 09:15
PROVIDERS: Visit Provider Internal Medicine Geriatric Medicine
DX: E11.65 Type 2 diabetes mellitus with hyperglycemia (principal); E78.00 Pure hypercholesterolemia, unspecified; I10 Essential (primary) hypertension
CPT/HCPCS: 36415; 80053; 80061; 82043; 82570; 82607; 85025

== ENCOUNTER 2023-10-20 08:33 | Outpatient (REF) | payer MEDICAID, SELFPAY ==
[2023-10-20 11:34] LABS: Alanine Aminotransferase 21 U/L (0-40); Alkaline Phosphatase 61 U/L (39-117); Aspartate Amino Transferase 16 U/L (5-37); Bilirubin Direct < 0.2 mg/dL (0.0-0.5); Bilirubin Total 0.2 mg/dL (0.0-1.0); Cholesterol 168 mg/dL (<200); HDL Cholesterol 38 mg/dL (>40); LDL Cholesterol Calculated 115 mg/dL (<100); Triglycerides 78 mg/dL (<150)
== END 2023-10-20 08:34 | disposition home or self-care (01) ==
LOC: HO.HHCL 08:33
PROVIDERS: Visit Provider Internal Medicine Geriatric Medicine
DX: E11.65 Type 2 diabetes mellitus with hyperglycemia (principal)
CPT/HCPCS: 36415; 80061; 80076

== ENCOUNTER 2023-12-29 11:29 | Outpatient (REF) | payer MEDICAID, SELFPAY ==
[2023-12-29 13:58] LABS: Alanine Aminotransferase 32 U/L (0-40); Albumin Level 4.3 g/dL (3.5-5.0); Alkaline Phosphatase 76 U/L (39-117); Anion Gap 11 (12-20); Aspartate Amino Transferase 23 U/L (5-37); Bilirubin Direct 0.2 mg/dL (0.0-0.5); Bilirubin Total 0.4 mg/dL (0.0-1.0); Blood Urea Nitrogen 10 mg/dL (9-16); Calcium 9.7 mg/dL (8.4-10.2); Carbon Dioxide 26 mmol/L (22-29); Chloride 107 mmol/L (96-108); Cholesterol 106 mg/dL (<200); Estimated Glomerular Filt Rate > 60; Glucose Random 120 mg/dL (60-115); HDL Cholesterol 34 mg/dL (>40); LDL Cholesterol Calculated 64 mg/dL (<100); Potassium 3.9 mmol/L (3.3-5.1); Sodium 140 mmol/L (135-145); Total Protein 7.6 g/dL (6.5-8.0); Triglycerides 44 mg/dL (<150)
== END 2023-12-29 11:30 | disposition home or self-care (01) ==
LOC: HO.HHCL 11:29
PROVIDERS: Visit Provider Internal Medicine Geriatric Medicine
DX: E11.65 Type 2 diabetes mellitus with hyperglycemia (principal); I10 Essential (primary) hypertension
CPT/HCPCS: 36415; 80048; 80061; 80076

== ENCOUNTER 2024-04-16 13:48 | Outpatient (AMB) | payer OTHER, SELFPAY ==
[2024-04-16 13:52] VITALS: BP 120/80; PULSE 70; BMI 29.3
--- NOTE | 2024-04-16 13:52 | MHC.OFFVIS ---
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 Name: [id number] Accompanied by: Self / Same As Patient Allergies shellfish derived [SHELLFISH DERIVED] Allergy (Severe, Unverified 08/18/22 08:49) ITCHY THROAT/SWELLING seafood Allergy (Unknown, Uncoded 08/18/22 08:49) Unknown Medication List - Last Reconciled 04/16/24 by Fritz Drew MD amlodipine 5 mg PO QAM atorvastatin 20 mg PO DAILY azithromycin For 250 mg dose pack: take 500 mg today (day 1), then 250 mg for 4 days (days 2-5) benzonatate 200 mg PO TID PRN cyclobenzaprine 10 mg PO TID PRN duloxetine 60 mg PO DAILY empagliflozin (Jardiance) 10 mg PO QAM empagliflozin-metformin 12.5-1,000 mg ER (Synjardy XR) 2 tabs PO QAM glipizide 5 mg PO TID lisinopril 10 mg PO DAILY mirtazapine 15 mg PO BEDTIME naproxen 500 mg PO BID PRN omeprazole 20 mg PO DAILY HPI Comments Details: Luis is here for consultation regarding chest pains. He does not have any known cardiac issues including coronary disease or myocardial infarction or cardiomyopathy or in fact any other cardiac issues. States that he gets pains in the front of the chest. Somewhat random occurrence. It can happen during rest or exertion. Multiple cardiovascular risk factors including diabetes, hypertension, dyslipidemia. [facility] Medical History (Updated 04/16/24 @ 14:11 by Fritz Drew MD) Anxiety and depression High cholesterol Hypertension Diabetes Hepatitis B Surgical History History of colon surgery History of shoulder surgery Family History (Updated 04/16/24 @ 14:00 by Tiffani Nice CMA) Mother Heart attack Father No problems noted. Social History Alcohol intake: never Tobacco use type: Smokeless Tobacco Current occupational status: employed Current occupation: [employer], left handed Review of Systems Const Denies chills, Denies fatigue, Denies fever(s), Denies frequent falls, Denies weakness, Denies weight gain and Denies weight loss ENT Denies dizziness Card Denies chest pain, Denies leg edema, Denies lightheadedness, Denies palpitations, Denies dyspnea, Denies dyspnea on exertion and Denies orthopnea Resp Denies cough, Denies dyspnea and Denies dyspnea on exertion GI Denies bloating and Denies change in bowel habits Musc Denies muscle weakness, Denies numbness and Denies tingling Neuro Denies dizziness, Denies frequent falls, Denies numbness, Denies tingling and Denies weakness Endo Denies fatigue and Denies palpitations Physical Exam Vital Signs: Last Vital Signs Pulse 70 04/16/24 13:52 BP 120/80 04/16/24 13:52 BMI result Body Mass Index 29.3 Const General: comfortable and no acute distress Orientation/consciousness: patient oriented x3 HEENT Other: Unremarkable Head: Yes normal to inspection Neck Neck: Yes normal visual inspection Chest Chest palpation & inspection: normal inspection of the chest Resp Auscultation: clear to auscultation bilaterally Cardio Palpation: normal PMI Heart sounds: S1 normal heart sound present, S2 normal heart sound present, no gallops, no murmurs and no rubs GI Palpation (GI): Soft to palpation Back/Spine/Pelvis Other: unremarkable Skin General skin exam: no rashes or lesions noted Neuro General: patient oriented x3 Extrem General: Yes normal to inspection Psych Mental Status: mental status grossly normal Office Procedures EKG Details: EKG with underlying sinus rhythm at 70/Min; no significant ST-T changes; otherwise unremarkable; [place]. [id number], Complete Assessment & Plan Assessment & Plan (1) Precordial chest pain: Code(s): R07.2 - Precordial pain Category: Medical (2) Type 2 diabetes mellitus with unspecified complications: Code(s): E11.8 - Type 2 diabetes mellitus with unspecified complications Category: Medical (3) Hypertension: Code(s): I10 - Essential (primary) hypertension Category: Medical (4) High cholesterol: Code(s): E78.00 - Pure hypercholesterolemia, unspecified Category: Medical Plan Atypical sounding chest pain but with risk factors. Baseline EKGs unremarkable. We will get an echocardiogram/stress test. Further plan based on the findings. Orders: Orders CA echo transthoracic complete Today R07.2 - Precordial pain CA echo stress exercise Today R07.2 - Precordial pain Coding Level of Care Code New Pt Level 4 (42808) Diagnoses Precordial chest pain R07.2 Type 2 diabetes mellitus with unspecified complications E11.8 Hypertension I10 High cholesterol E78.00 CPT Codes EKG - CPT: 45041-[id number], Complete ([id number])
== END 2024-04-16 14:19 | disposition home or self-care (01) ==
PROVIDERS: PCP Internal Medicine Geriatric Medicine; Visit Provider Internal Medicine
DX: R07.2 Precordial pain (principal); E11.8 Type 2 diabetes mellitus with unspecified complications; I10 Essential (primary) hypertension; E78.00 Pure hypercholesterolemia, unspecified
CPT/HCPCS: 93010; 99204

== ENCOUNTER → 2024-04-16 13:48 | Outpatient (BNVA) | payer MEDICAID, SELFPAY | PROVIDERS: PCP Internal Medicine Geriatric Medicine; Visit Provider Internal Medicine | DX: R07.2 Precordial pain (principal); E11.8 Type 2 diabetes mellitus with unspecified complications; I10 Essential (primary) hypertension; E78.00 Pure hypercholesterolemia, unspecified | CPT/HCPCS: 93005; 99202 ==